=== PATIENT | male | born 1965 | race Caucasian/White ===

== ENCOUNTER → 2017-02-23 | Outpatient (CLI) | payer BC ==
[~2017-02-23] MED LIST: OXYC-57 PO; PRLSR20 PO
--- NOTE | 2017-02-23 15:33 | DIAGNOSTIC IMAGING REPORT ---
LEFT KNEE 1 OR 2 VIEWS ROUTINE CLINICAL HISTORY: Left knee pain. Arthritis. COMPARISON: None FINDINGS: Alignment of the left knee is anatomic. There is no acute fracture or joint effusion. Joint spaces are preserved. IMPRESSION: No significant abnormality of the left knee. Electronically signed by: Juan J Enriquez M.D. 02/23/2017 3:32 PM Dictated Date/Time: 02/23/2017 3:32 PM
== END | disposition home or self-care (01) ==
LOC: C.RAD 14:26
PROVIDERS: ATTEND Family Medicine
DX: M13.162 Monoarthritis, not elsewhere classified, left knee (principal)

== ENCOUNTER → 2017-03-06 | Outpatient (CLI) | payer BC ==
--- NOTE | 2017-03-06 13:39 | DIAGNOSTIC IMAGING REPORT ---
LEFT KNEE 2 VIEWS CLINICAL HISTORY: Left knee pain. FINDINGS: Tunnel and sunrise views of left knee are compared to AP and lateral views dated 02/23/2017. The skeletal structures are well mineralized. No fracture is seen on the provided images. The joint spaces appear preserved. No osteochondral defect is identified on the tunnel view. There is no obvious joint effusion. The overlying soft tissues are within normal limits. IMPRESSION: No abnormality is identified in the left knee on the tunnel and sunrise images. Electronically signed by: Spencer Tompkins M.D. 03/06/2017 1:37 PM Dictated Date/Time: 03/06/2017 1:35 PM
== END | disposition home or self-care (01) ==
LOC: C.RDSM 13:25
PROVIDERS: ATTEND Internal Medicine
DX: M25.562 Pain in left knee (principal)